=== PATIENT | female | born 1950 | race African-American/Black ===

== ENCOUNTER 2017-12-25 06:57 | Day surgery (SDC) | payer OTHER ==
[2017-12-24 14:32] VITALS: BMI 27.7
[2017-12-25] MEDS ORDERED: PROPOFOL 20 ML ONE ×2 (08:22)
[2017-12-25 08:32] VITALS: TEMP 97.7
[2017-12-25 09:13] VITALS: BP 130/71; PULSE 78
== END 2017-12-25 09:30 | disposition home or self-care (01) ==
LOC: JASU-ENDO 06:57
PROVIDERS: ATTEND Internal Medicine Gastroenterology
PROC: 0DJD8ZZ Inspection of Lower Intestinal Tract, Via Natural or Artificial Opening Endoscopic (ICD-10-PCS; principal; 2017-12-25 08:00)
DX: Z12.11 Encounter for screening for malignant neoplasm of colon (principal); Z86.010 Personal history of colon polyps; K64.8 Other hemorrhoids

== ENCOUNTER 2021-09-26 14:33 | Inpatient (IN) | payer OTHER ==
[2021-09-26] MEDS ORDERED: PANTOPRAZOLE SODIUM 40 MG VIAL IVPUSH ONE (17:09)
[2021-09-26] MEDS ORDERED: PANTOPRAZOLE SODIUM 40 MG VIAL ONE (17:40)
[2021-09-26 19:01] LABS: ALBUMIN 3.4 g/dl (3.4-5.0); BLOOD UREA NITROGEN 13.8 mg/dL (7-18)
[2021-09-26 19:04] LABS: CREATININE 0.6 mg/dL (0.55-1.3)
[2021-09-26 19:05] LABS: BILIRUBIN,TOTAL 0.2 mg/dL (0.2-1); TOT PROT 6.6 g/dl (6.4-8.2)
[2021-09-26 19:09] LABS: BASO % 0.6 % (0-2.0); EOS % 0.6 % (0-4.5); HEMATOCRIT 31.5 % (32.4-45.2); HEMOGLOBIN 10.5 GM/dL (10.7-15.3); LYMPH % 38.6 % (8-40); MCH 31.1 pg (25.7-33.7); MCHC 33.3 g/dl (32.0-36.0); MEAN CELL VOLUME 93.3 fl (80-96); MEAN PLT VOLUME 8.5 fl (7.5-11.1); MONO % 5.1 % (3.8-10.2); NEUT % 55.1 % (42.8-82.8); PLATELET COUNT 277 10^3/uL (134-434); RBC 3.38 M/mm3 (3.60-5.2); WHITE BLOOD COUNT 10.2 K/mm3 (4.0-10.0)
[2021-09-27 01:48] LABS: HEMATOCRIT 25.1 % (32.4-45.2); HEMOGLOBIN 8.5 GM/dL (10.7-15.3); MCH 31.3 pg (25.7-33.7); MCHC 33.9 g/dl (32.0-36.0); MEAN CELL VOLUME 92.2 fl (80-96); PLATELET COUNT 235 10^3/uL (134-434); RBC 2.72 M/mm3 (3.60-5.2); RDW 13.6 % (11.6-15.6); WHITE BLOOD COUNT 7.2 K/mm3 (4.0-10.0)
[2021-09-27 02:00] LABS: EPI CELLS 27 /uL (0-25.1); HYALINE CASTS 2 /uL (0-3.1); PH,URINE 5.5 (5.0-8.0); URINE APPEARANCE CLEAR; URINE BACTERIA 497 /uL (0-1359); URINE BILIRUBIN NEGATIVE (NEGATIVE); URINE COLOR YELLOW; URINE GLUCOSE (UA) NEGATIVE (NEGATIVE); URINE KETONE NEGATIVE (NEGATIVE); URINE LEUK ESTERASE 1+ (NEGATIVE); URINE NITRITE NEGATIVE (NEGATIVE); URINE PROTEIN NEGATIVE (NEGATIVE); URINE RBC 13 /uL (0-23.9); URINE UROBILINOGEN 0.2 mg/dL (0.2-1.0); URINE WBC 63 /uL (0-25.8)
[2021-09-27 02:36] LABS: HEMATOCRIT 25.6 % (32.4-45.2); HEMOGLOBIN 8.6 GM/dL (10.7-15.3); MCH 31.3 pg (25.7-33.7); MCHC 33.7 g/dl (32.0-36.0); MEAN CELL VOLUME 92.8 fl (80-96); MEAN PLT VOLUME 7.6 fl (7.5-11.1); PLATELET COUNT 233 10^3/uL (134-434); RBC 2.76 M/mm3 (3.60-5.2); RDW 13.7 % (11.6-15.6); WHITE BLOOD COUNT 8.3 K/mm3 (4.0-10.0)
[2021-09-27] MEDS ORDERED: ALPRAZolam 0.25 MG TABLET PO PRN (04:45)
[2021-09-27] MEDS: INSULIN SLIDING SCALE (NOVOLOG) 1 VIAL SQ SCH ×4 (07:27→21:36)
[2021-09-27 09:30] LABS: BASO % 0.7 % (0-2.0); EOS % 0.4 % (0-4.5); HEMATOCRIT 25.5 % (32.4-45.2); HEMOGLOBIN 8.6 GM/dL (10.7-15.3); LYMPH % 34.4 % (8-40); MCH 31.4 pg (25.7-33.7); MCHC 33.6 g/dl (32.0-36.0); MEAN CELL VOLUME 93.6 fl (80-96); MEAN PLT VOLUME 8.2 fl (7.5-11.1); MONO % 6.3 % (3.8-10.2); NEUT % 58.2 % (42.8-82.8); PLATELET COUNT 241 10^3/uL (134-434); RBC 2.73 M/mm3 (3.60-5.2); RDW 13.5 % (11.6-15.6); WHITE BLOOD COUNT 7.9 K/mm3 (4.0-10.0)
[2021-09-27] MEDS ORDERED: PANTOPRAZOLE SODIUM 80 MG in SODIUM CHLORIDE 100 ML IVPB SCH (09:30)
[2021-09-27] MEDS: DEXTROSE 5%-0.45% SALINE 1,000 ML IV SCH ×2 (09:56→15:58)
[2021-09-27 09:58] LABS: CALCIUM 8.3 mg/dL (8.5-10.1)
[2021-09-27 09:59] LABS: MAGNESIUM 1.9 mg/dL (1.8-2.4)
[2021-09-27] MEDS ORDERED: PANTOPRAZOLE SODIUM 40 MG VIAL IVPUSH SCH (10:00)
[2021-09-27 10:02] LABS: CREATININE 0.7 mg/dL (0.55-1.3); PHOSPHOROUS 3.9 mg/dL (2.5-4.9)
[2021-09-27 10:17] LABS: INR 1.19 (0.83-1.09); PROTHROMBIN TIME (PATIENT) 13.3 SEC (9.7-13.0)
[2021-09-27] MEDS ORDERED: EPINEPHrine 1:10,000 (P-F SYR) 1 MG/10 ML DISP.SYRIN IVPUSH ONE (12:00)
[2021-09-27] MEDS ORDERED: ACETAMINOPHEN 325 MG TABLET (FP) PO PRN (12:16)
[2021-09-27] MEDS ORDERED: EPINEPHrine 1:10,000 (P-F SYR) 1 MG/10 ML DISP.SYRIN ONE (13:06)
[2021-09-27 13:45] VITALS: BMI 25.2
[2021-09-27] MEDS: METOCLOPRAMIDE HCL INJECTION 10 MG/2 ML VIAL IVPUSH SCH ×2 (14:30→18:25)
[2021-09-27] MEDS: PANTOPRAZOLE SODIUM 160 MG in SODIUM CHLORIDE 290 ML IVPB SCH (14:32)
[2021-09-27] MEDS: RAMIPRIL 2.5 MG CAPSULE PO SCH (14:47)
[2021-09-27 17:38] LABS: BASO % 0.5 % (0-2.0); EOS % 0.2 % (0-4.5); HEMATOCRIT 22.3 % (32.4-45.2); HEMOGLOBIN 7.6 GM/dL (10.7-15.3); LYMPH % 31.8 % (8-40); MCH 31.5 pg (25.7-33.7); MCHC 34.1 g/dl (32.0-36.0); MEAN CELL VOLUME 92.4 fl (80-96); MEAN PLT VOLUME 8.3 fl (7.5-11.1); MONO % 7.2 % (3.8-10.2); NEUT % 60.3 % (42.8-82.8); PLATELET COUNT 232 10^3/uL (134-434); RBC 2.42 M/mm3 (3.60-5.2); RDW 13.6 % (11.6-15.6)
[2021-09-27] MEDS ORDERED: ROSUVASTATIN CA 20 MG TABLET PO SCH (22:00)
[2021-09-28] MEDS: METOCLOPRAMIDE HCL INJECTION 10 MG/2 ML VIAL IVPUSH SCH ×2 (02:48→11:55)
[2021-09-28] MEDS: INSULIN SLIDING SCALE (NOVOLOG) 1 VIAL SQ SCH ×2 (06:48→12:00)
[2021-09-28] MEDS: PANTOPRAZOLE SODIUM 160 MG in SODIUM CHLORIDE 290 ML IVPB SCH (06:50)
[2021-09-28] MEDS: DEXTROSE 5%-0.45% SALINE 1,000 ML IV SCH ×2 (06:50→12:01)
[2021-09-28 09:57] LABS: BASO % 0.6 % (0-2.0); EOS % 0.4 % (0-4.5); HEMATOCRIT 24.4 % (32.4-45.2); HEMOGLOBIN 8.4 GM/dL (10.7-15.3); LYMPH % 31.2 % (8-40); MCH 31.7 pg (25.7-33.7); MCHC 34.4 g/dl (32.0-36.0); MEAN CELL VOLUME 92.1 fl (80-96); MONO % 5.9 % (3.8-10.2); NEUT % 61.9 % (42.8-82.8); PLATELET COUNT 211 10^3/uL (134-434); RBC 2.65 M/mm3 (3.60-5.2); RDW 13.5 % (11.6-15.6); WHITE BLOOD COUNT 8.3 K/mm3 (4.0-10.0)
[2021-09-28 10:00] VITALS: BP 119/52; PULSE 87; TEMP 98.6
[2021-09-28 10:20] LABS: CHLORIDE 114 mmol/L (98-107); SODIUM 144 mmol/L (136-145)
[2021-09-28 10:23] LABS: ANION GAP 6 MMOL/L (8-16); CALCIUM 8.2 mg/dL (8.5-10.1); CO2 25 mmol/L (21-32)
[2021-09-28 10:24] LABS: BLOOD UREA NITROGEN 11.1 mg/dL (7-18); GLUCOSE,RANDOM 138 mg/dL (74-106)
[2021-09-28 10:27] LABS: CREATININE 0.5 mg/dL (0.55-1.3)
[2021-09-28] MEDS: RAMIPRIL 2.5 MG CAPSULE PO SCH (11:54)
[2021-09-28 13:30] LABS: IRON SERUM 117 ug/dL (50-175)
[2021-09-28 13:31] LABS: TOTAL IRON BINDING CAPACITY 321 ug/dL (250-450)
[2021-09-30 07:08] LABS: CARCINOEMBRYONIC ANTIGEN 2.5 ng/mL (0.0-4.7)
== END 2021-09-28 12:42 | disposition short-term general hospital (02) | DRG 378 ==
LOC: JER 14:33 → JERBED 21:10 → J8W 09-27 13:15
PROVIDERS: ADMIT Internal Medicine; ATTEND Internal Medicine
PROC: 3E0G8GC Introduction of Other Therapeutic Substance into Upper GI, Via Natural or Artificial Opening Endoscopic (ICD-10-PCS; 2021-09-27)
PROC: 30233N1 Transfusion of Nonautologous Red Blood Cells into Peripheral Vein, Percutaneous Approach (ICD-10-PCS; 2021-09-27)
PROC: 0DB68ZX Excision of Stomach, Via Natural or Artificial Opening Endoscopic, Diagnostic (ICD-10-PCS; principal; 2021-09-27 11:40)
DX: K92.2 Gastrointestinal hemorrhage, unspecified (principal); C49.A9 Gastrointestinal stromal tumor of other sites; E78.5 Hyperlipidemia, unspecified; K21.9 Gastro-esophageal reflux disease without esophagitis; K44.9 Diaphragmatic hernia without obstruction or gangrene; E11.9 Type 2 diabetes mellitus without complications; K57.90 Diverticulosis of intestine, part unspecified, without perforation or abscess without bleeding; K64.9 Unspecified hemorrhoids; D25.9 Leiomyoma of uterus, unspecified; I10 Essential (primary) hypertension; Z87.19 Personal history of other diseases of the digestive system; Z88.0 Allergy status to penicillin; K31.89 Other diseases of stomach and duodenum; D13.0 Benign neoplasm of esophagus
CPT/HCPCS: 36415; 36430; 74174-TC; 80048; 80053; 81003; 82272; 82378; 82962; 83540; 83550; 83735; 84100; 85025; 85027; 85610; 86140; 86301; 86850; 86900; 86901; 86922; 93005; 93010; 99285-25; C9803-CS; P9058; Q9967; U0003; U0005

== ENCOUNTER 2023-05-25 04:37 | Day surgery (SDC) | payer OTHER ==
[2023-05-23 13:44] VITALS: BMI 26.9
[2023-05-25 09:30] VITALS: TEMP 97.2
[2023-05-25 10:08] VITALS: BP 133/81; PULSE 56; RESP 17
== END 2023-05-25 10:30 | disposition home or self-care (01) ==
LOC: JASU-ENDO 04:37
PROVIDERS: ATTEND Internal Medicine Gastroenterology
PROC: 0DBP8ZX Excision of Rectum, Via Natural or Artificial Opening Endoscopic, Diagnostic (ICD-10-PCS; 2023-05-25)
PROC: 0DBN8ZX Excision of Sigmoid Colon, Via Natural or Artificial Opening Endoscopic, Diagnostic (ICD-10-PCS; 2023-05-25)
PROC: 0DB98ZX Excision of Duodenum, Via Natural or Artificial Opening Endoscopic, Diagnostic (ICD-10-PCS; 2023-05-25)
PROC: 0DB78ZX Excision of Stomach, Pylorus, Via Natural or Artificial Opening Endoscopic, Diagnostic (ICD-10-PCS; 2023-05-25)
PROC: 0DB68ZX Excision of Stomach, Via Natural or Artificial Opening Endoscopic, Diagnostic (ICD-10-PCS; 2023-05-25)
PROC: 0DBH8ZX Excision of Cecum, Via Natural or Artificial Opening Endoscopic, Diagnostic (ICD-10-PCS; principal; 2023-05-25 08:30)
DX: Z12.11 Encounter for screening for malignant neoplasm of colon (principal); D12.0 Benign neoplasm of cecum; K63.5 Polyp of colon; K29.50 Unspecified chronic gastritis without bleeding; K44.9 Diaphragmatic hernia without obstruction or gangrene; K21.00 Gastro-esophageal reflux disease with esophagitis, without bleeding; K31.7 Polyp of stomach and duodenum; K57.30 Diverticulosis of large intestine without perforation or abscess without bleeding; K59.89 Other specified functional intestinal disorders; D17.5 Benign lipomatous neoplasm of intra-abdominal organs; Z86.010 Personal history of colon polyps
CPT/HCPCS: 88305-TC; 88342-TC